=== PATIENT | male | born 1955 | race Caucasian/White ===

== ENCOUNTER 2018-03-02 20:17 | Emergency (ER) | payer OTHER ==
[~2018-03-02] VITALS: Ht 182.9 cm; Wt 72.6 kg
--- NOTE | 2018-03-02 20:33 | NUR ---
DR BALJIT FRIEDMAN MD AT BEDSIDE FOR MSE.
[2018-03-02] MEDS ORDERED: BLOOD PRESSURE PILL (20:34)
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
[2018-03-02] MEDS ORDERED: SULFAMETH/TRIMETH 800/160 MG TABLET ONE (20:44)
[2018-03-02] MEDS ORDERED: SULFAMETH/TRIMETH 800/160 MG TABLET PO ONE (20:45)
--- NOTE | 2018-03-02 20:56 | NUR ---
Patient discharged to home in stable conditon. Written and verbal after care instructions given. Patient verbalizes understanding of instructions. Pt ambulated w/ steady gait. No distress noted. Pt took all personal belongings.
[2018-03-02 20:58] VITALS: BP 166/98
== END 2018-03-02 21:01 | disposition home or self-care (01) ==
LOC: ER 20:20
DX: S91.331A Puncture wound without foreign body, right foot, initial encounter (principal); I10 Essential (primary) hypertension; Z88.0 Allergy status to penicillin; Z79.899 Other long term (current) drug therapy; W56.81XA Bitten by other nonvenomous marine animals, initial encounter; Y93.89 Activity, other specified; Y92.89 Other specified places as the place of occurrence of the external cause; Y99.8 Other external cause status
CPT/HCPCS: 99283; A4663

== ENCOUNTER 2019-03-13 15:33 | Emergency (ER) | payer BC, OTHER ==
[~2019-03-13] VITALS: Ht 185.4 cm; Wt 72.6 kg
[~2019-03-13 15:33] MED LIST: BLOOD PRESSURE PILL
[2019-03-13] MEDS ORDERED: LOSA25TA27 PO (15:49)
--- NOTE | 2019-03-13 16:17 | NUR ---
PATIENT WAS SEEN BY . DC, RX AND F/U INSTRUCTIONS GIVEN AND EXPLAINED TO PATIENT WHO STATES HE UNDERSTANDS ALL INSTRUCTIONS.
== END 2019-03-13 16:20 | disposition home or self-care (01) ==
LOC: ER 15:33
DX: A49.02 Methicillin resistant Staphylococcus aureus infection, unspecified site (principal); Z88.0 Allergy status to penicillin; Z79.899 Other long term (current) drug therapy
CPT/HCPCS: A4663

== ENCOUNTER 2019-03-16 12:32 | Emergency (ER) | payer BC ==
[~2019-03-16] VITALS: Ht 193 cm; Wt 72.6 kg
[~2019-03-16 12:32] MED LIST changes: +LOSA25TA27 PO
--- NOTE | 2019-03-16 12:51 | NUR ---
Patient discharged to home in stable conditon. Written and verbal after care instructions given. Patient verbalizes understanding of instructions.
== END 2019-03-16 12:55 | disposition home or self-care (01) ==
LOC: ER 12:32
DX: B95.8 Unspecified staphylococcus as the cause of diseases classified elsewhere (principal); Z88.0 Allergy status to penicillin; Z79.899 Other long term (current) drug therapy
CPT/HCPCS: A4663

== ENCOUNTER 2019-04-18 17:54 | Emergency (ER) | payer BC, MEDICAID ==
[~2019-04-18] VITALS: Ht 188 cm; Wt 72.6 kg
--- NOTE | 2019-04-18 17:55 | NUR ---
ELDER GLEZ AT BEDSIDE FOR MSE.
[2019-04-18 18:05] VITALS: BP 133/75
--- NOTE | 2019-04-18 18:08 | NUR ---
Patient discharged to home in stable conditon. Written and verbal after care instructions given. Patient verbalizes understanding of instructions.
== END 2019-04-18 18:13 | disposition home or self-care (01) ==
LOC: ER 17:56
DX: L02.31 Cutaneous abscess of buttock (principal); Z88.0 Allergy status to penicillin; Z79.899 Other long term (current) drug therapy
CPT/HCPCS: A4663

== ENCOUNTER 2019-05-07 16:50 | Emergency (ER) | payer BC, MEDICAID ==
[~2019-05-07] VITALS: Ht 188 cm; Wt 72.6 kg
--- NOTE | 2019-05-07 17:39 | NUR ---
Patient discharged to home in stable conditon. Written and verbal after care instructions given. Patient verbalizes understanding of instructions.
== END 2019-05-07 17:41 | disposition home or self-care (01) ==
LOC: ER 16:52
DX: L03.311 Cellulitis of abdominal wall (principal); Z88.0 Allergy status to penicillin; Z79.899 Other long term (current) drug therapy
CPT/HCPCS: A4663

== ENCOUNTER 2019-10-20 11:01 | Emergency (ER) | payer BC, MEDICAID ==
[~2019-10-20] VITALS: Ht 188 cm; Wt 72.6 kg
--- NOTE | 2019-10-20 11:16 | NUR ---
PT WAS EVALUATED BY DR TAYLOR. PT WAS D/C'D TO HOME. D/C INSTRUCTIONS GIVEN TO THE PT.
[2019-10-20 11:17] VITALS: BP 142/77
== END 2019-10-20 11:19 | disposition home or self-care (01) ==
LOC: ER 11:01
DX: L08.9 Local infection of the skin and subcutaneous tissue, unspecified (principal); Z88.0 Allergy status to penicillin; Z60.2 Problems related to living alone; Z79.899 Other long term (current) drug therapy
CPT/HCPCS: A4663

== ENCOUNTER 2021-04-16 14:23 | Emergency (ER) | payer BC, OTHER ==
[~2021-04-16] VITALS: Ht 188 cm; Wt 72.6 kg
[2021-04-16] MEDS ORDERED: SULF1TAB48 PO (14:34)
--- NOTE | 2021-04-16 14:36 | NUR ---
PT SEEN AND EXAMINED BY DR CARRIZALES.
[2021-04-16 14:41] VITALS: BP 115/67
== END 2021-04-16 14:43 | disposition home or self-care (01) ==
LOC: ER 14:30
DX: L73.9 Follicular disorder, unspecified (principal); Z88.0 Allergy status to penicillin; Z86.14 Personal history of Methicillin resistant Staphylococcus aureus infection; Z86.79 Personal history of other diseases of the circulatory system
CPT/HCPCS: A4663